=== PATIENT | male | born 1990 | race Caucasian/White ===

== ENCOUNTER 2023-07-22 06:10 | Outpatient (CLI) | payer OTHER, SELFPAY | END 2023-07-22 06:11 | disposition home or self-care (01) | LOC: NFLDREF 08-09 21:27 | PROVIDERS: Visit Provider Obstetrics & Gynecology | DX: Z31.41 Encounter for fertility testing (principal) | CPT/HCPCS: 89322 ==

== ENCOUNTER 2023-10-07 09:05 | Outpatient (CLI) | payer OTHER, SELFPAY ==
[2023-10-08 15:03] LABS: Estradiol Premenol Female 91 pg/mL
[2023-10-08 16:28] LABS: Testosterone, Adult Male 234 ng/dL (300-1080)
[2023-10-08 18:40] LABS: Follicle Stimulating Hormone 5.1 IU/L (1.5-12.4)
== END 2023-10-07 09:06 | disposition home or self-care (01) ==
LOC: NPINS 09:07
PROVIDERS: Visit Provider Urology
DX: N46.9 Male infertility, unspecified (principal)
CPT/HCPCS: 82670; 83001; 84403